=== PATIENT | female | born 2000 ===

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

== ENCOUNTER 2019-02-16 13:25 | Inpatient (IN) ==
[2019-02-16] MEDS ORDERED: ONDANSETRON 4 MG/2 ML VIAL IV PRN (14:12)
[2019-02-16] MEDS: BUTORPHANOL 1 MG/ML VIAL IV PRN ×2 (14:27→19:46)
[2019-02-16] MEDS: TERBUTALINE 1 MG/1 ML VIAL SUBCUT PRN ×2 (14:27→15:36)
[2019-02-16] MEDS: LACTATED RINGERS 1,000 ML IV SCH ×2 (16:33→23:46)
[2019-02-17] MEDS ORDERED: CITRIC ACID/SODIUM CITRATE 30 ML UDCUP PO ONE (03:42)
[2019-02-17] MEDS ORDERED: ceFAZolin 2,000 MG in PREMIX 1 EACH IV ONE (03:42)
[2019-02-17] MEDS ORDERED: FAMOTIDINE 20 MG/2 ML VIAL IV ONE (03:42)
[2019-02-17] MEDS ORDERED: LACTATED RINGERS 1,000 ML IV SCH ×2 (04:00→11:00)
[2019-02-17 04:32] LABS: Basophils % 0.1 % (0.0-0.8); Eosinophils # 0.1 10*3/uL (0.0-0.87); Eosinophils % 0.6 % (0.00-10.9); Hematocrit 31.2 VOL% (35.7-47.0); Hemoglobin 9.8 GM/DL (12.0-16.0); Immature Granulocytes % 0.6 %; Immature Granulocytes Absolute 0.05 #; Lymphocytes % 23.4 % (21.3-54.2); Mean Corpuscular HGB Conc 31.4 GM/DL (32-36); Mean Corpuscular Volume 83.2 FL (87-102); Mean Platelet Volume 10.6 FL (9.6-12.0); Monocytes % 6.6 % (1.7-12.7); Neutrophils % 68.7 % (38.7-73.9); Platelet Count 275 T/CUMM (130-400); Red Blood Count 3.75 MC/CUMM (3.8-5.5); Red Cell Distribution Width 14.2 % (9.3-17.3); White Blood Count 8.4 T/CUMM (4-12)
[2019-02-17 05:01] LABS: Albumin 2.4 G/DL (3.4-5.0); Bilirubin,Total 0.9 MG/DL (0.2-1.0); Calcium 8.5 MG/DL (8.5-10.1); Osmolality,Calculated 272.5 MOS/KG (273-304); Total Protein 6.8 G/DL (6.4-8.3)
[2019-02-17] MEDS: BUTORPHANOL 1 MG/ML VIAL IV PRN (05:22)
[2019-02-17] MEDS ORDERED: ROPIVACAINE 0.5% 30 ML VIAL ONE (06:53)
[2019-02-17] MEDS ORDERED: fentaNYL 100 MCG/2 ML VIAL ONE (06:53)
[2019-02-17] MEDS ORDERED: MORPHINE 10 MG/10 ML VIAL ONE (06:53)
[2019-02-17] MEDS ORDERED: PHENYLEPHRINE 1 MG/10 ML SYRINGE IV ONE (06:53)
[2019-02-17] MEDS ORDERED: BUPIVACAINE SPINAL 0.75% 2 ML AMP SPINAL ONE (06:54)
[2019-02-17] MEDS ORDERED: OXYTOCIN/LR 30 UNIT/1,000 ML BAG IV ONE (07:00)
[2019-02-17] MEDS ORDERED: OXYTOCIN 10 UNIT/ML VIAL IM ONE (07:00)
[2019-02-17] MEDS ORDERED: OXYTOCIN/LR 20 UNIT/1,000 ML BAG IV ONE ×2 (07:00→10:46)
[2019-02-17 09:49] LABS: Apearance,Urine CLEAR (Clear); Bilirubin,Urine Negative (Negative); Blood, Urine Negative (Negative); Glucose,Urine (UA) Negative (Negative); Ketones,Urine 80 mg/dL (Negative); Nitrite,Urine Negative (Negative); Protein,Urine Negative; RBC,Urine <1 /HPF (0-4); Squamous Epithelial Cell,Urine Occasional /HPF (0-10); Urine Color Yellow (Yellow); Urine Specific Gravity 1.011 (1.001-1.035); Urine Urobilinogen < 2.0 EU/DL (0.2-1.0); WBC,Urine <1 /HPF (0-6)
[2019-02-17] MEDS ORDERED: EPINEPHrine 1 MG/ML VIAL ONE (09:49)
[2019-02-17] MEDS ORDERED: BUPIVACAINE 0.5% 50 ML VIAL ONE (09:49)
[2019-02-17] MEDS ORDERED: DEXAMETHASONE 4 MG/1 ML VIAL ONE (09:50)
[2019-02-17 09:54] LABS: Cord Arterial Blood HCO3 20.4 MMOL/L; Cord Venous Blood HCO3 23.1 MMOL/L; Cord Venous Blood PCO2 44.4 MMHG; Cord Venous Blood PO2 32.4 MMHG
[2019-02-17] MEDS ORDERED: RHO(D) IMMUNE GLOBULIN 300 MCG SYRINGE IM ONE (10:46)
[2019-02-17] MEDS ORDERED: IBUPROFEN 800 MG TABLET PO PRN (10:46)
[2019-02-17] MEDS ORDERED: ACETAMINOPHEN 325 MG TABLET PO PRN (10:46)
[2019-02-17] MEDS ORDERED: ONDANSETRON 4 MG/2 ML VIAL IV PRN (10:46)
[2019-02-17] MEDS: ceFAZolin 1,000 MG in SYRINGE 1 EACH IV SCH (17:23)
[2019-02-17] MEDS ORDERED: ceFAZolin 1,000 MG in SYRINGE 1 EACH IV SCH (17:30)
[2019-02-17 18:11] LABS: Basophils % 0.1 % (0.0-0.8); Hematocrit 28.7 VOL% (35.7-47.0); Hemoglobin 9.2 GM/DL (12.0-16.0); Immature Granulocytes % 0.5 %; Immature Granulocytes Absolute 0.07 #; Mean Corpuscular HGB Conc 32.1 GM/DL (32-36); Mean Corpuscular Volume 81.1 FL (87-102); Mean Platelet Volume 10.5 FL (9.6-12.0); Monocytes % 4.1 % (1.7-12.7); Neutrophils % 88.3 % (38.7-73.9); Platelet Count 297 T/CUMM (130-400); Red Blood Count 3.54 MC/CUMM (3.8-5.5); Red Cell Distribution Width 13.7 % (9.3-17.3); White Blood Count 14.7 T/CUMM (4-12)
[2019-02-17] MEDS: DOCUSATE SODIUM 100 MG CAPSULE PO SCH (21:33)
[2019-02-18] MEDS: ceFAZolin 1,000 MG in SYRINGE 1 EACH IV SCH (01:25)
[2019-02-18 04:12] LABS: Basophils % 0.2 % (0.0-0.8); Eosinophils % 0.2 % (0.00-10.9); Hematocrit 26.3 VOL% (35.7-47.0); Hemoglobin 8.4 GM/DL (12.0-16.0); Immature Granulocytes % 0.6 %; Immature Granulocytes Absolute 0.08 #; Lymphocytes # 2.3 10*3/uL (1.4-4.0); Lymphocytes % 18.1 % (21.3-54.2); Mean Corpuscular HGB Conc 31.9 GM/DL (32-36); Mean Corpuscular Volume 81.9 FL (87-102); Mean Platelet Volume 10.5 FL (9.6-12.0); Monocytes % 9.3 % (1.7-12.7); Neutrophils % 71.6 % (38.7-73.9); Platelet Count 263 T/CUMM (130-400); Red Blood Count 3.21 MC/CUMM (3.8-5.5); Red Cell Distribution Width 13.8 % (9.3-17.3); White Blood Count 12.7 T/CUMM (4-12)
[2019-02-18] MEDS: SIMETHICONE CHEW 80 MG TABLET PO PRN (08:14)
[2019-02-18] MEDS: MAGNESIUM HYDROXIDE SUSP 30 ML UDCUP PO PRN (08:14)
[2019-02-18] MEDS: MULTIVITAMIN (PRENATAL) TABLET PO SCH (08:14)
[2019-02-18] MEDS: METOCLOPRAMIDE 10 MG TABLET PO SCH ×3 (08:14→23:24)
[2019-02-18] MEDS: DOCUSATE SODIUM 100 MG CAPSULE PO SCH ×2 (08:15→22:12)
[2019-02-19 08:27] VITALS: BP 113/62
[2019-02-19] MEDS: MULTIVITAMIN (PRENATAL) TABLET PO SCH (08:46)
[2019-02-19] MEDS: METOCLOPRAMIDE 10 MG TABLET PO SCH (08:46)
[2019-02-19] MEDS: DOCUSATE SODIUM 100 MG CAPSULE PO SCH (08:46)
[2019-02-19] MEDS: MAGNESIUM HYDROXIDE SUSP 30 ML UDCUP PO PRN (08:47)
[2019-02-19] MEDS: SIMETHICONE CHEW 80 MG TABLET PO PRN (08:48)
== END 2019-02-19 13:15 | disposition home or self-care (01) | DRG 540 ==
LOC: N.LDOUT 13:25 → N.LD 13:28 → N.OB 02-17 13:06
PROVIDERS: ADMIT Obstetrics & Gynecology; ATTEND Obstetrics & Gynecology
PROC: LDCSECT (ICD-10-PCS; 2019-02-17 09:00)